=== PATIENT | female | born 1990 | race American Indian/Alaskan Native ===

== ENCOUNTER 2019-10-12 14:37 | Emergency (ER) | payer SELFPAY ==
[2019-10-12 15:07] VITALS: BP 111/59
--- NOTE | 2019-10-12 16:22 | Event Note ---
ED Screening Note Date of service: 10/12/19 Time: 16:19 ED Screening Note: 29 y o female presents to the Ed cc of URI sx x 1 week denies fever,chills, n/v/d This initial assessment/diagnostic orders/clinical plan/treatment(s) is/are subject to change based on patients health status, clinical progression and re- assessment by fellow clinical providers in the ED. Further treatment and workup at subsequent clinical providers discretion. Patient/guardian urged not to elope from the ED as their condition may be serious if not clinically assessed and managed. Initial orders include: resources given to pt to follow up no respiratory distress VSS instructions given to return if new or worsening sx
== END 2019-10-12 16:19 | disposition left against medical advice (07) ==
LOC: ED 14:37
DX: R42 Dizziness and giddiness (principal); Z53.21 Procedure and treatment not carried out due to patient leaving prior to being seen by health care provider

== ENCOUNTER 2019-11-11 01:49 | Emergency (ER) | payer MEDICAID ==
--- NOTE | 2019-11-11 03:07 | XRay Report ---
CHEST 1 VIEW INDICATION: Chest Pain. COMPARISON: None. FINDINGS: Support devices: None. Heart: Normal. Lungs/Pleura: No acute pulmonary or pleural findings. IMPRESSION: 1. No acute findings. Signer Name: Al Hamm MD Signed: 11/11/2019 3:02 AM Workstation Name: [id number]
[2019-11-11] MEDS ORDERED: IBUPROFEN 800 MG TAB PO ONE (05:26)
--- NOTE | 2019-11-11 05:30 | Emergency Department Report ---
ED General Adult HPI - General Chief complaint: Upper Respiratory Infection Stated complaint: MAYI/CHEST/NECK PAIN Time Seen by Provider: 11/11/19 05:25 Source: patient Mode of arrival: Ambulatory Limitations: Language Barrier - History of Present Illness Initial comments: 29-year-old -[place] female without significant past medical history presents with complaints of bilateral neck pain and cough x today. She denies any injury and states she woke up with the pain this morning. She rates her pain as a 5/10 in severity and states it worsens with movement of the neck. She denies any fever/chills/sweats, headache, vision changes, dizziness, numbness/tingling/weakness in her limbs, hemoptysis, or shortness of breath. Patient states cough is nonproductive and causes pain in her chest. She denies any leg pain/swelling, recent long travel, control, history of DVT/PE, or recent surgery. Patient states she googled her symptoms and she is concerned for her heart. -: Sudden - Related Data Previous Rx's Medication Instructions Recorded Last Taken Type Ibuprofen [Motrin 800 MG tab] 800 mg PO ONCE PRN #21 tablet 11/11/19 Unknown Rx methOCARBAMOL [Robaxin TAB] 750 mg PO Q8H PRN #20 tablet 11/11/19 Unknown Rx Allergies Allergy/AdvReac Type Severity Reaction Status Date / Time No Known Allergies Allergy Verified 11/11/19 01:53 ED Review of Systems ROS: Stated complaint: MAYI/CHEST/NECK PAIN Other details as noted in HPI Constitutional: denies: chills, fever Eyes: denies: vision change ENT: denies: throat pain Respiratory: cough. denies: shortness of breath Cardiovascular: denies: chest pain, palpitations, edema, syncope Gastrointestinal: denies: abdominal pain, nausea, vomiting Musculoskeletal: denies: back pain Skin: denies: rash, lesions Neurological: denies: headache, weakness, numbness, paresthesias, abnormal gait ED Past Medical Hx - Past Medical History Previous Medical History?: No - Surgical History Past Surgical History?: Yes Hx Cholecystectomy: Yes - Social History Smoking Status: Current Every Day Smoker Substance Use Type: None - Medications Home Medications: Home Medications Medication Instructions Recorded Confirmed Last Taken Type Ibuprofen [Motrin 800 MG tab] 800 mg PO ONCE PRN #21 tablet 01/20/20 Unknown Rx methOCARBAMOL [Robaxin TAB] 750 mg PO Q8H PRN #20 tablet 11/11/19 Unknown Rx ED Physical Exam - General Limitations: Language Barrier General appearance: alert, in no apparent distress - Head Head exam: Present: atraumatic, normocephalic - Eye Eye exam: Present: normal appearance. Absent: scleral icterus - ENT ENT exam: Present: mucous membranes moist - Neck Neck exam: Present: tenderness (bilateral trapezius and paraspinal muscle tenderness noted, no vertebral tenderness noted), full ROM - Respiratory Respiratory exam: Present: normal lung sounds bilaterally. Absent: respiratory distress, wheezes, rales, rhonchi, chest wall tenderness, accessory muscle use - Cardiovascular Cardiovascular Exam: Present: regular rate, normal rhythm. Absent: systolic murmur, diastolic murmur, rubs, gallop - Extremities Exam Extremities exam: Present: normal inspection. Absent: calf tenderness (no lower leg swelling noted) - Back Exam Back exam: Present: normal inspection, full ROM - Neurological Exam Neurological exam: Present: alert, oriented X3 - Psychiatric Psychiatric exam: Present: normal affect, normal mood - Skin Skin exam: Present: warm, dry, intact, normal color. Absent: rash ED Course Vital Signs 11/11/19 01:56 Temperature 97.7 F Pulse Rate 82 Respiratory 18 Rate Blood Pressure 119/71 O2 Sat by Pulse 97 Oximetry ED Medical Decision Making - EKG Data EKG shows normal: sinus rhythm Rate: normal - Radiology Data Radiology results: report reviewed CHEST 1 VIEW INDICATION: Chest Pain. COMPARISON: None. FINDINGS: Support devices: None. Heart: Normal. Lungs/Pleura: No acute pulmonary or pleural findings. IMPRESSION: 1. No acute findings. - Medical Decision Making 29-year-old -[place] female without significant past medical history presents with complaints of bilateral neck pain and cough x today. She denies any red flag symptoms. Perc score = 0. Chest x-ray is normal. EKG is normal. Neck pain appears to be muscular on exam. Patient is nontoxic appearing. Vitals are stable. Patient stable for discharge home with follow with primary care. Prescription for ibuprofen and Robaxin given. Discussed strict return precautions in detail with patient who verbalizes understanding. Critical care attestation.: If time is entered above; I have spent that time in minutes in the direct care of this critically ill patient, excluding procedure time. ED Disposition Clinical Impression: Cough Neck muscle strain Qualifiers: Encounter type: initial encounter Qualified Code(s): S16.1XXA - Strain of muscle, fascia and tendon at neck level, initial encounter Disposition: TO HOME OR SELFCARE Is pt being admited?: No Condition: Stable Instructions: Cervical Spine Strain (ED), Cold Symptoms (ED) Prescriptions: Ibuprofen [Motrin 800 MG tab] 800 mg PO ONCE PRN #21 tablet PRN Reason: pain methOCARBAMOL [Robaxin TAB] 750 mg PO Q8H PRN #20 tablet PRN Reason: muscle tightness Referrals: PRIMARY CARE, [Primary Care Provider] - 3-5 Days
[2019-11-11 06:19] VITALS: BP 114/52
== END 2019-11-11 06:17 | disposition home or self-care (01) ==
LOC: ED 01:49
DX: S16.1XXA Strain of muscle, fascia and tendon at neck level, initial encounter (principal); R05 Cough; F17.200 Nicotine dependence, unspecified, uncomplicated; Z90.49 Acquired absence of other specified parts of digestive tract; Z79.899 Other long term (current) drug therapy; X58.XXXA Exposure to other specified factors, initial encounter; Y93.89 Activity, other specified; Y92.89 Other specified places as the place of occurrence of the external cause; Y99.8 Other external cause status
CPT/HCPCS: 71045; 93005; 93010; 99283

== ENCOUNTER 2020-11-08 14:31 | Emergency (ER) | payer SELFPAY ==
[2020-11-08 15:15] VITALS: BP 142/77
--- NOTE | 2020-11-08 15:20 | Emergency Department Report ---
ED General Adult HPI - General Chief complaint: Neck Pain/Injury Stated complaint: LFT SIDE PAIN/3MONTHS NO PERIOD Time Seen by Provider: 11/08/20 15:08 Source: patient Mode of arrival: Ambulatory Limitations: No Limitations - History of Present Illness Initial comments: Patient is a 30-year-old female presents emergency room complaints of lower abdominal discomfort for 3 months. She states that she has not had a menstrual cycle for 3 months. She has an implanted control in her arm. She states that it is approximately 3 years old and she needs to have it changed out soon. She states that she is concerned that she may be because she had not had a menstrual cycle for 3 months but she has an implanted control. she states that she is also been having right-sided neck pain. She denies any fall or injury. She states that occasionally she feels tingling in her arm but denies any numbness or weakness. She is ambulatory without difficulty. No past medical history. No allergies medications. Severity scale (0 -10): 0 - Related Data Previous Rx's Medication Instructions Recorded Last Taken Type Ibuprofen [Motrin 800 MG tab] 800 mg PO ONCE PRN #21 tablet 11/11/19 Unknown Rx methOCARBAMOL [Robaxin TAB] 750 mg PO Q8H PRN #20 tablet 11/11/19 Unknown Rx Menthol/Camphor [[employer] [place] 1 applicatio TP BID #18 oint...g. 11/08/20 Unknown Rx Ointment] Naproxen [EC-Naprosyn] 500 mg PO BID PRN #14 tablet. 11/08/20 Unknown Rx methOCARBAMOL [Robaxin TAB] 500 mg PO BID PRN #14 tab 11/08/20 Unknown Rx Allergies Allergy/AdvReac Type Severity Reaction Status Date / Time No Known Allergies Allergy Verified 11/11/19 01:53 ED Review of Systems ROS: Stated complaint: LFT SIDE PAIN/3MONTHS NO PERIOD Other details as noted in HPI Comment: All other systems reviewed and negative ED Past Medical Hx - Past Medical History Previous Medical History?: No - Surgical History Past Surgical History?: Yes Hx Cholecystectomy: Yes - Social History Smoking Status: Current Every Day Smoker Substance Use Type: Alcohol - Medications Home Medications: Home Medications Medication Instructions Recorded Confirmed Last Taken Type Ibuprofen [Motrin 800 MG tab] 800 mg PO ONCE PRN #21 tablet 11/11/19 Unknown Rx methOCARBAMOL [Robaxin TAB] 750 mg PO Q8H PRN #20 tablet 11/11/19 Unknown Rx Menthol/Camphor [[employer] [place] 1 applicatio TP BID #18 oint...g. 11/08/20 Unknown Rx Ointment] Naproxen [EC-Naprosyn] 500 mg PO BID PRN #14 tablet.dr 11/08/20 Unknown Rx methOCARBAMOL [Robaxin TAB] 500 mg PO BID PRN #14 tab 11/08/20 Unknown Rx ED Physical Exam - General Limitations: No Limitations General appearance: alert, in no apparent distress - Head Head exam: Present: atraumatic, normocephalic - Eye Eye exam: Present: normal appearance - ENT ENT exam: Present: mucous membranes moist - Neck Neck exam: Present: normal inspection, full ROM. Absent: tenderness - Respiratory Respiratory exam: Present: normal lung sounds bilaterally. Absent: respiratory distress, wheezes, rales, rhonchi, stridor, chest wall tenderness, accessory muscle use, decreased breath sounds, prolonged expiratory - Cardiovascular Cardiovascular Exam: Present: regular rate, normal rhythm, normal heart sounds. Absent: systolic murmur, diastolic murmur, rubs, gallop - GI/Abdominal GI/Abdominal exam: Present: soft, normal bowel sounds. Absent: distended, tenderness, guarding, rebound, rigid - Back Exam Back exam: Present: normal inspection, full ROM. Absent: paraspinal tenderness, vertebral tenderness - Neurological Exam Neurological exam: Present: alert, oriented X3, CN II-XII intact, normal gait. Absent: motor sensory deficit - Psychiatric Psychiatric exam: Present: normal affect, normal mood - Skin Skin exam: Present: warm, dry, intact ED Course Vital Signs 11/08/20 15:14 Temperature 98.7 F Pulse Rate 105 H Respiratory 20 Rate Blood Pressure 142/77 [Right] O2 Sat by Pulse 100 Oximetry ED Medical Decision Making - Lab Data Lab Results 11/08/20 Range/Units Unknown Urine Color Yellow (Yellow) Urine Turbidity Cloudy (Clear) Urine pH 5.0 (5.0-7.0) Ur Specific [place] 1.019 (1.003-1.030) Urine Protein <15 mg/dl (Negative) mg/dL Urine Glucose (UA) Neg (Negative) mg/dL Urine Ketones Neg (Negative) mg/dL Urine Blood Neg (Negative) Urine Nitrite Neg (Negative) Urine Bilirubin Neg (Negative) Urine Urobilinogen < 2.0 (<2.0) mg/dL Ur Leukocyte Esterase Sm (Negative) Urine WBC (Auto) 2.0 (0.0-6.0) /HPF Urine RBC (Auto) 5.0 (0.0-6.0) /HPF U Epithel Cells (Auto) 36.0 H (0-13.0) /HPF Urine Mucus Few /HPF Urine HCG, Qual Negative (Negative) - Medical Decision Making Patient is a 30-year-old female presents emergency room complaints of lower abdominal discomfort for 3 months. She states that she has not had a menstrual cycle for 3 months. She has an implanted control in her arm. She states that it is approximately 3 years old and she needs to have it changed out soon. She states that she is concerned that she may be because she had not had a menstrual cycle for 3 months but she has an implanted control. she states that she is also been having right-sided neck pain. She denies any fall or injury. She states that occasionally she feels tingling in her arm but denies any numbness or weakness. She is ambulatory without difficulty. No past medical history. No allergies medications. VSS. No abdominal tenderness on exam, no guarding, no rebound, no rigidity, normal bowel sounds, no peritoneal signs. Urine is negative. UA without evidence of UTI. No midline spinal or paraspinal C-spine, T-spine, L-spine tenderness palpation, no step- offs, no deformities, no focal neuro deficits. Nexus criteria negative, C-spine can be cleared clinically. Do not suspect acute emergent condition of the patient's neck at this time. Symptoms likely related to mild muscle strain. Patient be referred to primary care doctor. Patient will also be referred to CHILD CARE DIRECTOR regarding irregular menses. Discussed the importance of follow-up with patient. Discussed return precautions. Patient given prescription for naproxen, Robaxin, [employer] balm ointment. Advised patient Please use medication as prescribed. Follow-up with your primary care doctor. Follow-up with your CHILD CARE DIRECTOR. May use ice pack, heating pad, rest, Epsom salt bath. Return to emergency room for any new or worsening symptoms. Critical care attestation.: If time is entered above; I have spent that time in minutes in the direct care of this critically ill patient, excluding procedure time. ED Disposition Clinical Impression: Abnormal menses, Neck pain Disposition: TO HOME OR SELFCARE Is pt being admited?: No Does the pt Need Aspirin: No Condition: Stable Instructions: Muscle Strain, [id number] Additional Instructions: Please use medication as prescribed. Follow-up with your primary care doctor. Follow-up with your CHILD CARE DIRECTOR. May use ice pack, heating pad, rest, Epsom salt bath. Return to emergency room for any new or worsening symptoms. Your urine test is negative, your urine shows no signs of urinary tract infection Prescriptions: Naproxen [EC-Naprosyn] 500 mg PO BID PRN #14 tablet. PRN Reason: pain methOCARBAMOL [Robaxin TAB] 500 mg PO BID PRN #14 tab PRN Reason: pain Menthol/Camphor [[employer] [place] Ointment] 1 applicatio TP BID #18 oint...g. Referrals: ELIU CARMONA MD [Staff Physician] - 3-5 Days [facility] [Provider Group] - 3-5 Days [facility], [LAB/CONTRACT] - 3-5 Days [facility] [Outside] - 3-5 Days PRIMARY CAREMD [Primary Care Provider] - 3-5 Days your, credit review officer [Other] - 3-5 Days Time of Disposition: 15:50 Print Language: SAMI
[2020-11-08 15:48] LABS: Bilirubin,Urine NEG (Negative); Blood,Urine NEG (Negative); Color,Urine Yellow (Yellow); Mucus,Urine FEW /HPF; Protein,Urine <15 mg/dL mg/dL (Negative); Urobilinogen,Urine < 2.0 mg/dL (<2.0)
[2020-11-08 15:49] LABS: HCG Qualitative,Urine Negative (Negative)
== END 2020-11-08 16:09 | disposition home or self-care (01) ==
LOC: ED 14:31
DX: N92.6 Irregular menstruation, unspecified (principal); M54.2 Cervicalgia; F17.200 Nicotine dependence, unspecified, uncomplicated; Z79.899 Other long term (current) drug therapy; Z90.49 Acquired absence of other specified parts of digestive tract
CPT/HCPCS: 81001; 81025; 99283

== ENCOUNTER 2021-05-12 19:30 | Emergency (ER) | payer SELFPAY ==
--- NOTE | 2021-05-12 21:01 | Emergency Department Report ---
Chief Complaint: Dental/Oral Stated Complaint: TOOTHACHE/HEADACHE Time Seen by Provider: 05/12/21 20:53 - HPI History of Present Illness: 31-year-old female patient presents to emergency department with complaints of dental pain for approximately 1 month. Patient has been taking Goody powders with limited relief. Patient has not made any attempts to schedule an appointment with a dentist. Symptoms are unchanged today. - ROS Review of Systems: GENERAL: Negative for fever. ENT: Positive for dental pain. CARDIOVASCULAR: Negative for chest pain. PULMONARY: Negative for shortness of breath. GASTROINTESTINAL: Negative for abdominal pain. MUSCULOSKELETAL: Negative for back pain. NEUROLOGICAL: Negative for headache. INTEGUMENTARY: Negative for rash. - Exam Vital Signs: Vital Signs 05/12/21 20:20 Temperature 97.7 F Pulse Rate 87 Respiratory 18 Rate Blood Pressure 133/80 O2 Sat by Pulse 98 Oximetry Physical Exam: General: Awake, appropriately interactive, no acute distress. ENT: Oral mucosa is moist. Multiple dental caries most pronounced along the right lower molars. The gingiva appear normal. No fluctuance or evidence of periapical abscess. Sublingual, submental, and submandibular spaces all soft, without edema. No evidence for maxillary or buccal space abscess. No trismus. Patient is speaking in full sentences and handling secretions without difficulty. Neck: Supple. Full range of motion intact. Cardiovascular: Normal peripheral perfusion. Pulmonary: No respiratory distress. Patient is speaking normally without use of accessory muscles. Skin: No apparent rashes or lesions. Neurological: No facial asymmetry. Speech is clear. Follows commands. Patient is alert and oriented. Musculoskeletal: Moves all four extremities spontaneously with normal range of motion. Psych: Cooperative. Appropriate mood and affect. MSE screening note: Focused history and physical exam performed. Due to findings the following was ordered: ED Medical Decision Making - Medical Decision Making Patient presents to the emergency department with complaints of ongoing dental pain for over a month. Symptoms are unchanged today. Patient has not made any effort to schedule an appointment with a dentist. She is afebrile, hemodynamically stable, speaking without difficulty, swallowing without difficulty, handling secretions without difficulty. No clinical evidence to suggest airway compromise or secondary bacterial infection warranting further diagnostic work-up or antibiotic administration on an emergent basis at this time. Patient has not tried any [id number] remedies other than Goody powders. Instructed to take Tylenol and Motrin as needed for pain. Referred to dentist for outpatient follow-up. BILLING/CODING: This patient encounter does not represent a certified medical emergency. ED Disposition for MSE Clinical Impression: Encounter for medical screening examination Disposition: TO HOME OR SELFCARE Is pt being admited?: No Does the pt Need Aspirin: No Condition: Stable Instructions: Medical Screening Exam Additional Instructions: Take Tylenol 1000 mg (two 500 mg tablets) every 4 hours as needed for pain. Take Motrin 800 mg (four 200 mg tablets) every 8 hours with food as needed for pain. Do not take Goody powders and Motrin at the same time. You must follow-up with a dentist for definitive management. Call tomorrow to schedule an appointment. See referral information below. Return to the emergency department immediately for new or worsening symptoms. Referrals: [facility] [Outside] - 3-5 Days Time of Disposition: 21:02
== END 2021-05-12 22:40 | disposition home or self-care (01) ==
LOC: ED 19:30
CPT/HCPCS: 99281